=== PATIENT | male | born 1960 | race Caucasian/White ===

== ENCOUNTER 2016-12-21 11:27 | Day surgery (SDC) | payer BC ==
--- NOTE | 2016-12-21 14:12 | Operative Note ---
Colonoscopy (Jayna) Procedure date: 12/21/16 Date of : 58 Procedure:Colonoscopy Colonoscopy with cold snare polypectomy Indications: Mr. Tyson is a 56-year-old gentleman who is here for screening/surveillance colonoscopy. He did have a colonoscopy 8 years ago with me which was normal. His mother had colon cancer at the age of 57/58 with metastatic spread to the liver. The patient reports no abdominal pain, weight loss, change in his bowel habits or rectal bleeding. Performing Provider: Sakina Dorantes MD Referrring Provider: Brent Sherwood M.D. Sedation: Fentanyl 100 mg IV/Versed 8 mg IV Procedure: Prior to the procedure, a history and physical exam was performed, and patient medications and allergies were reviewed. The risks and benefits of the procedure and the sedation options and risks were discussed with the patient. All questions were answered and informed consent was obtained. Patient identification and proposed procedure were verified by the physician and the nurse. The patient was placed in a left lateral decubitus position. Throughout the procedure, the patient's blood pressure, pulse, and oxygen saturations were monitored continuously. Findings: On digital rectal examination there was normal rectal tone. There was mild anal stenosis. There were no external hemorrhoids. The prostate was 2+, moderately firm but symmetric without nodules. The colonoscope was introduced through the anal canal to the rectum and advanced to the cecum. The ileocecal valve and appendiceal orifice were identified. The scope was advanced a short distance into the ileum which appeared grossly normal. The scope was then withdrawn into the colon. There were 4 colon polyps identified in the transverse 1 and descending 3. These ranged in size from 4-8 mm and were all removed via cold snare polypectomy. There were scattered diverticuli throughout the colon but more predominantly in the descending and sigmoid colon (LEFT colon). The rectum itself was normal. Upon retroflexion within the rectum there were grade 1-2 internal hemorrhoids. Impressions: 1. Colonic polyps 4 2. Pandiverticulosis 3. Grade 1-2 internal hemorrhoids 4. Firm prostate Recommendations: I will follow up the polyp pathology and recommend repeat colonoscopy again in 3 -5 years based upon the polyp histology. I would encourage fiber supplementation on a long-term daily maintenance basis. Complications: None EBL (ml): 0 at 1412
[2016-12-21 15:58] VITALS: BP 131/93
== END 2016-12-21 15:15 | disposition home or self-care (01) ==
LOC: SDC 11:27
PROVIDERS: Internal Medicine Gastroenterology
PROC: 0DBL8ZX Excision of Transverse Colon, Via Natural or Artificial Opening Endoscopic, Diagnostic (ICD-10-PCS; 2016-12-21)
PROC: 0DBM8ZX Excision of Descending Colon, Via Natural or Artificial Opening Endoscopic, Diagnostic (ICD-10-PCS; principal; 2016-12-21 12:30)
DX: Z12.11 Encounter for screening for malignant neoplasm of colon (principal); D12.3 Benign neoplasm of transverse colon; D12.4 Benign neoplasm of descending colon; Z80.0 Family history of malignant neoplasm of digestive organs; K57.30 Diverticulosis of large intestine without perforation or abscess without bleeding; K64.0 First degree hemorrhoids; K64.1 Second degree hemorrhoids; K62.4 Stenosis of anus and rectum; Z79.899 Other long term (current) drug therapy